=== PATIENT | female | born 1985 | race Caucasian/White ===

== ENCOUNTER → 2017-08-02 | Outpatient (CLI) | payer BC ==
[~2017-08-02] MED LIST: DOCO100C2 PO; PREN-127 PO
[2017-08-02 12:02] LABS: PLATELET COUNT, AUTOMATED 267 K/uL (150-450)
== END ==
LOC: LAB 11:34
PROVIDERS: ATTEND Obstetrics & Gynecology
DX: Z34.01 Encounter for supervision of normal first pregnancy, first trimester (principal); R82.79 Other abnormal findings on microbiological examination of urine
CPT/HCPCS: 36415; 85025; 86592; 86762; 86850; 86900; 86901; 87088; 87340

== ENCOUNTER → 2017-08-12 | Outpatient (CLI) | payer BC | LOC: LAB 13:40 | PROVIDERS: ATTEND Obstetrics & Gynecology | DX: Z34.01 Encounter for supervision of normal first pregnancy, first trimester (principal) | CPT/HCPCS: 87491; 87591 ==

== ENCOUNTER → 2017-11-07 | Outpatient (CLI) | payer BC ==
[~2017-11-07] MED LIST changes: +DOXY25TA54 PO; +VITA1CAP46 PO
--- NOTE | 2017-11-07 17:14 | RADIOLOGY IMAGING REPORT ---
FACILITY: [facility] PATIENT NAME: Fabi Mohamud : 1985 MR: [id number] V: [id number] EXAM DATE: ORDERING PHYSICIAN: TOI AGOSTO TECHNOLOGIST: Location: [facility] Patient: Fabi Mohamud : 1985 Visit/Account:[id number] Date of Sevice: 11/07/2017 OB Ultrasound HISTORY: Size and dates COMPARISON STUDIES: None available FINDINGS: Intrauterine gestations: one presentation: Variable heart rate: 147 bpm Amniotic fluid index: 17.0 cm Largest amniotic fluid pocket 5.1 cm Placenta: Anterior without previa Uterus: gravid, otherwise normal Maternal adnexa: Unremarkable Cervix: long and closed Gestational Parameters: BPD: 4.8 cm 20 weeks 5 days HC: 17.4 cm 20 weeks 3 days AC: 15.2 cm 20 weeks 4 days FL: 3.8 cm 22 weeks 2 days Average ultrasound age (AUA): 21 weeks 0 days TESSIE: 03/20/2018 Estimated weight (EFW): 403 g EFW: 89th percentile Anatomic Survey: Intracranial structures, 4-chamber heart, stomach, kidneys, urinary bladder, spine, 3-vessel cord and cord insertion are unremarkable. Two upper and two lower extremities visualized. IMPRESSION: 1. Single live intrauterine gestation with dates and measurements as above. 2. Unremarkable anatomic survey Report Dictated By: Jaden Villeda at 11/07/2017 5:08 PM Report E-Signed By: Jaden Villeda at 11/07/2017 5:10 PM [id number]
== END ==
LOC: RAD 08:07
PROVIDERS: ATTEND Obstetrics & Gynecology
DX: Z02.9 Encounter for administrative examinations, unspecified (principal)
CPT/HCPCS: 76811

== ENCOUNTER → 2017-12-21 | Outpatient (CLI) | payer BC ==
[~2017-12-21] MED LIST changes: +BUTA1TAB14 PO; +DIPH0.5D12 IM
[2017-12-21 14:28] LABS: PLATELET COUNT, AUTOMATED 260 K/uL (150-450)
== END ==
LOC: LAB 08:03
PROVIDERS: ATTEND Obstetrics & Gynecology
DX: O09.90 Supervision of high risk pregnancy, unspecified, unspecified trimester (principal)
CPT/HCPCS: 36415; 82950; 85025

== ENCOUNTER → 2017-12-28 | Outpatient (CLI) | payer BC ==
[~2017-12-28] MED LIST changes: +ONDA4TAB97 PO
== END ==
LOC: LAB 07:53
PROVIDERS: ATTEND Obstetrics & Gynecology
DX: O99.810 Abnormal glucose complicating pregnancy (principal)

== ENCOUNTER → 2018-02-23 | Outpatient (CLI) | payer BC | LOC: LAB 11:55 | PROVIDERS: ATTEND Student in an Organized Health Care Education/Training Program | DX: Z34.93 Encounter for supervision of normal pregnancy, unspecified, third trimester (principal) | CPT/HCPCS: 87077; 87081 ==

== ENCOUNTER 2018-03-15 15:12 | Inpatient (IN) | payer BC ==
[~2018-03-15] VITALS: Ht 171.4 cm; Wt 107.5 kg
[~2018-03-15 15:12] MED LIST changes: +FLU60SYR36 IM
[2018-03-15] MEDS ORDERED: OXYTOCIN 30 UNIT/D5LR 500 ML 500 ML IV PRN (16:09)
[2018-03-15] MEDS ORDERED: FAMOTIDINE(*) 20MG/50ML PREMIX 50 ML IVPB PRN (16:09)
[2018-03-15] MEDS ORDERED: FLUSH 10 ML SYR IVP PRN (16:10)
[2018-03-15] MEDS ORDERED: LIDOCAINE/SOD BICARB 8.4% SYR SC PRN (16:10)
[2018-03-15] MEDS ORDERED: METOCLOPRAMIDE 10 MG/2 ML SDV IVP PRN (16:10)
[2018-03-15] MEDS ORDERED: LIDOCAINE 1% LOCAL 300 MG/30ML INJ PRN (16:10)
[2018-03-15 16:18] VITALS: BP 136/87
[2018-03-15] MEDS: LR(*) 1000 ML BAG 1,000 ML IV SCH ×2 (16:27→18:37)
[2018-03-15 16:53] LABS: PLATELET COUNT, AUTOMATED 282 K/uL (150-450)
[2018-03-15] MEDS: fentaNYL CITR 100 MCG/2 ML AMP IVP PRN ×2 (17:45→17:54)
--- NOTE | 2018-03-15 18:14 | History & Physical ---
History of Present Illness Age of Patient: 32 : 1 Para or TPAL: 0 EDC per LMP: Mar 25, 2018 Estimated Gestational Age: 38.4 Chief Complaint Loss of fluid, my water broke. History of Present Illness Pt is a 32 y/o @ 38-4/7 wga who presents to L&D with a chief complaint of loss of amniotic fluid. Pt reports loss of fluid right after 3pm today. Clear amniotic fluid. Contractions starting there after. Pt denies any vaginal bleeding. Good movement. No fevers or chills. History Patient's Blood Type: O Positive Rubella Status: Immune Group B Strep Screen: Negative Obstetrical History: Past Medical History: Non contributory Allergies: Coded Allergies: No Known Drug Allergies (Unverified , 07/27/17) Social History: Denies X 3 Family History: FH: hypertension FATHER FH: skin cancer MOTHER FH: stroke Paternal Grandfather Med Rec Home Meds Active Scripts Ondansetron Hcl (ZOFRAN) 4 Mg Tablet, 4 MG PO DIRECTED, #1 TAB 0 Refills 1 tab PO 30 minutes prior to test Prov:TOI AGOSTO MD 12/28/17 Butalb/Acetaminophen/Caff 50-325-40 Mg (FIORICET 50-325-40) 1 Each Tablet, 1-2 TAB PO Q4H PRN for pain, #30 TAB 1 Refill Prov:TOI AGOSTO MD 11/23/17 Reported Medications Vitamin B Complex (VITAMIN B COMPLEX) 1 Each Capsule, 1 EACH PO, CAPSULE 09/28/17 Doxylamine Succinate (UNISOM SLEEP AID) 25 Mg Tablet, 25 MG PO 09/28/17 Docosahexanoic Acid (DHA) 100 Mg Capsule, 100 MG PO QDAY, CAPSULE 07/27/17 Vits W-Ca,Fe,Fa(<1MG) ( VITAMINS) 1 Each Tablet, 1 EACH PO DAILY, TAB 07/27/17 Review of Systems All Systems Reviewed/Normal: Yes, Except as Noted Constitutional: No Fever, No Weight Loss, No Weight Gain, No Chills, No Night Sweats, No Other Neurological: No Syncope, No Confusion, No Weakness, No Dizziness, No Slurred Speech, No Other Eyes: No Vision Change, No Loss of Vision, No Photophobia, No Other ENT: No Hearing Loss, No Sinus Congestion, No Sore Throat, No Ear Ache, No Tinnitus, No Other Cardiovascular: No Chest Pain, No Palpitations, No Orthostatic Hypotension, No Other Respiratory: No Shortness of Breath, No Cough, No Wheezing, No Other Gastrointestinal: No Nausea, No Vomiting, No Diarrhea, No Dysphagia, No Constipation, No Early Satiety, No Hematemesis, No Hematochezia, No Melena, No Abdominal Pain, No Other Genitourinary: No Dysuria, No Hematuria, No Urinary Incontinence, No Other Musculoskeletal: No Pain, No Sprain, No Strain, No Impaired Mobility, No Other Psychiatric: No Depression, No Anxiety, No Other Exam General Exam Vital Signs Vital Signs Date Time Temp Pulse Resp B/P (MAP) Pulse Ox O2 Delivery O2 Flow Rate FiO2 03/15/18 16:18 98.4 85 24 136/87 (103) Room Air General Apperance: Alert/Awake/No Acute Distress Neuro: No Gross deficits Eyes: Normal Extraocular Movement & Vison, PERRLA ENT: Normal Cardiovascular: Regular Rate and Rhythm Respiratory: No Respiratory Distress, Clear to Auscultation Abdomen: Soft, Non-Tender, Non-Distended, Gravid - Non-Tender : Normal Musculoskeletal: No Weakness/Pain Extremities: No Cyanosis,Clubbing or Edema Integumentary: Skin Intact without Lesions or Rash Psychological: Alert & Oriented X3, Appropriate Mood & Affect Vaginal Discharge/Fluid?: Clear Fluid (Grossly ruptured.) Cervical Dialation: 1 Cervical Effacement (%): 100 Cervical Consistency: Soft Cervical Position: Anterior Station: -1 Presentation: Vertex (confirmed by bedside U/s. 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 Will expect . Pt desires "Natural (w/o epidural) delivery. Pt progressing slowly with Fentanyl. (3) Primigravida in third trimester MABLE ARRIAGA DO Mar 15, 2018 18:14
[2018-03-15] MEDS ORDERED: fentaNYL CITR 100 MCG/2 ML AMP IT PRN (18:20)
[2018-03-15] MEDS ORDERED: BUPIVACAINE 0.25% MPF INJ EPI PRN (18:20)
[2018-03-15] MEDS ORDERED: LIDO/EPI 2% MPF 1:200,000 20ML EPI PRN (18:20)
[2018-03-15] MEDS ORDERED: EPIDURAL KEYS XX PRN (18:20)
[2018-03-15] MEDS ORDERED: BUPIVACAINE 0.5% INJ 30ML VIAL EPI PRN (18:20)
[2018-03-15] MEDS ORDERED: LIDOCAINE/PF 2% 200MG/10ML AMP 200 MG/10 ML AMPUL EPI PRN (18:20)
[2018-03-15] MEDS ORDERED: FENTANYL/ROPIVACAINE 100 ML BAG EPI PRN (18:20)
[2018-03-15] MEDS: ONDANSETRON 4 MG/2 ML VIAL IVP PRN (18:31)
[2018-03-15] MEDS ORDERED: LR(*) 1000 ML BAG 1,000 ML IV PRN (18:40)
--- NOTE | 2018-03-15 20:05 | Anesthesia OB Pre-Anes Eval ---
History of Present Illness Anesthesia Start Date: Mar 15, 2018 Anesthesia Start Time: 18:50 OB Anesthesia Diagnosis: spontaneous ROM Complications: None known EDC: Mar 25, 2018 : 1 Para: 0 Vital Signs: Vital Signs Date Time Temp Pulse Resp B/P (MAP) Pulse Ox O2 Delivery O2 Flow Rate FiO2 03/15/18 16:18 98.4 85 24 136/87 (103) Room Air Pain Ratin Heart Tones: WNL Result Diagram: 03/15/18 1630 Height (Inches): 67.50 Weight (Pounds): 237 Past Medical History Medical History: no pertinent history Surgical History: other (knee) Previous Anesthesia: general Attended Childbirth Classes?: Yes, Attended SUPERVISOR OF WAY Lecture, Other (but no anesthesia lecture) Hx Anesthesia Reactions: No Hx Family Anesthesia Reaction: No Current Medications: pain medication (Fentenyl) Home Meds Active Scripts Ondansetron Hcl (ZOFRAN) 4 Mg Tablet, 4 MG PO DIRECTED, #1 TAB 0 Refills 1 tab PO 30 minutes prior to test Prov:TOI AGOSTO MD 12/28/17 Butalb/Acetaminophen/Caff 50-325-40 Mg (FIORICET 50-325-40) 1 Each Tablet, 1-2 TAB PO Q4H PRN for pain, #30 TAB 1 Refill Prov:TOI AGOSTO MD 11/23/17 Reported Medications Vitamin B Complex (VITAMIN B COMPLEX) 1 Each Capsule, 1 EACH PO, CAPSULE 09/28/17 Doxylamine Succinate (UNISOM SLEEP AID) 25 Mg Tablet, 25 MG PO 09/28/17 Docosahexanoic Acid (DHA) 100 Mg Capsule, 100 MG PO QDAY, CAPSULE 07/27/17 Vits W-Ca,Fe,Fa(<1MG) ( VITAMINS) 1 Each Tablet, 1 EACH PO DAILY, TAB 07/27/17 Allergies: Coded Allergies: No Known Drug Allergies (Unverified , 07/27/17) Anesthesia OB ROS Neurological: migraines/headaches (history) ENT: Denies Tooth caps, Denies Loose teeth, Denies Chipped teeth, Denies Dentures, Denies Bridges, Denies Retainers, Denies Veneers, Denies Implants, Denies Tongue ring Pulmonary: No asthma, No smoker (pks/day/yrs) Airway Class: ll Cardiovascular ROS: No edema, No arrhythmia GI ROS: clear liquids, nausea, vomiting Last Solids Date: Mar 15, 2018 Last Solids Time: 14:30 ROS: No Herpes, No STD(s), No Liver Disease, No Renal Disease Endocrine ROS: No diabetes, No gestational diabetes, No thyroid disorder Musculoskeletal ROS: No low back pain, No low back injury, No scoliosis ASA Classification: 2 Assessment and Plan Anesthesia Plan: CSE Assessment Past Medical, Surgical, Family and Obstetric Histories reviewed. Please see ACOG chart. Epidural anesthesia risks, complications and benefits explained to patient's satisfaction for labor and vaginal delivery and/or section. General anesthesia risks and benefits explained to patient's satisfaction. Questions invited, none asked. MARITZA CHANG CRNA Mar 15, 2018 20:04
--- NOTE | 2018-03-15 20:12 | Procedure Note ---
Anesthetic Placement Note Anesthesia Plan: CSE Permit for Anesthesia Signed: Yes Anesthesia Technique: Patient Sitting Anesthesia Prep: Chlorhexidine Interspace: L 3-4 Local Anesthetic: 1% Lidocaine, 25 Gauge Needle Amount Local - cc's: 2 Anesthesia Needle: 17g Touhy/Schliff Anesthesia Attempts: 1 Loss of Resistance: Air Depth of SULEMAN (cm): 6 Epidural Needle Placement: No CSF, No Blood, No Parasthesia Intrathecal Needle: 27 Gauge Pencan Cerebral Spinal Fluid: Yes, Clear Catheter Insertion (cm): 8 Catheter Type: Kapadia - Spring Wound Epidural Dressing: Tegaderm, Tape, Adhesive [place] Anesthesia Tray: Lot Number ([id number]), Expiration Date (2019-01-22), Reference Number ([id number]) Anesthesia Medications: Intrathecal Dose: mcg Fentanyl (15), mg Marcaine MPF (1.75), Time (1906) Epidural Test Dose: 1.5 Lido/Epi (1:200,000), Dose - mL (2), Time (1937), Negative Epidural Loading Dose: 0.2% Ropivicaine, With Fentanyl 2mcg/ml, Dose - ml (5) Epidural Infusion: 0.2% Ropivicaine, With Fentanyl 2mcg/ml, Start Time: (1937) Epidural Pump Setting: Bolus Dose - mL (5), Lockout - Minutes (0), Maintenance Rate - mL/hr (6), Maximum per Hour - mL (21) Complications: None Comment: Pt. tolerated procedure very well, able to maintain position. Very vocal with contractions. Pt. became comfortable within 5-7 minutes after intrathecal. Mild itching noted. MARITZA CHANG CRNA Mar 15, 2018 20:12
--- NOTE | 2018-03-15 20:14 | Anesthesia Progress Note ---
Progress/Maintenance Anesthesia Note Date: Mar 15, 2018 Anesthesia Note Time: 20:10 Pain Intensity: 0 Pump: On Pump Rate (ML/HR): 6 Sensory Level: T-12 Motor Level: Bending Knees-Bilateral Dilatation: 4 Position: Right Assessment and Plan Assessment Assisted to change sides, now on left. Pt. was able to move herself. Legs feeling equal. States she does not feel contractions. Encouraged to rest. Protein drink given. MARITZA CHANG CRNA Mar 15, 2018 20:14
[2018-03-15] MEDS ORDERED: FAMOTIDINE(*) 20MG/50ML PREMIX 50 ML IVPB ONE (22:00)
--- NOTE | 2018-03-15 23:26 | Anesthesia Progress Note ---
Progress/Maintenance Anesthesia Note Date: Mar 15, 2018 Anesthesia Note Time: 23:25 Pain Intensity: 1 Pump: On Pump Rate (ML/HR): 6 Sensory Level: T-12 Motor Level: Bending Knees-Bilateral Dilatation: 8 Position: Right, Tilt Assessment and Plan Assessment Pt. states she feels more on her rt side, assisted to turn onto her rt. Pt. does very well in moving her legs and lifting. MARITZA CHANG CRNA Mar 15, 2018 23:26
[2018-03-16] MEDS: ONDANSETRON 4 MG/2 ML VIAL IVP PRN (02:40)
--- NOTE | 2018-03-16 04:51 | Anesthesia Progress Note ---
Progress/Maintenance Anesthesia Note Date: Mar 16, 2018 Anesthesia Note Time: 04:45 Pain Intensity: 5 Pump: On Pump Rate (ML/HR): 6 Sensory Level: T-12 Motor Level: Bending Knees-Bilateral, Other (Able to move both legs and lift to change pads) Dilatation: 9 Position: Right, Tilt Drug Bolus: 0.5% Marcaine (5 ml), Other (85 mcgs) Assessment and Plan Assessment Pt. with anterior lip. Bolus per epidural pump with no improvement in comfort for rt sided pain with contractions. Turned onto rt side and manual bolus given. Will observe for improvement. MARITZA CHANG CRNA Mar 16, 2018 04:51
--- NOTE | 2018-03-16 07:29 | Labor Progress Note ---
Labor Subjective Progress Notes Subjective Doing good s/p epidural. Feeling increased pressure. Desires to push. Feeling Movement?: Yes Vaginal Discharge/Fluid: No Bloody Show, No Clear Fluid, No Bloody Fluid, No Green Tinged Fluid, No Dark Green Fluid, No Mucous, No Small Amount, No Moderate Amount, No Large Amount, No Other Labor Pain: Mild Neurological: No Headache, No Other Eyes: No Visual Disturbances Labor Objective Vital Signs Vital Signs Date Time Temp Pulse Resp B/P (MAP) Pulse Ox O2 Delivery O2 Flow Rate FiO2 03/15/18 16:18 98.4 85 24 136/87 (103) Room Air Vaginal Discharge/Fluid?: Bloody Show Cervical Dialation: 10 Cervical Effacement (%): 100 Cervical Consistency: Soft Cervical Position: Anterior Station: +2 Presentation: Vertex Uterine Contractions(Q min): 1.5 Uterine Contraction Strength: Moderate UC Resting Tone: Soft Fetus Heart Tones: 130 Heart Tone Variabilty: Moderate FHT Accelerations: 15X15 FHT Decelerations: None FHT Category: I Other Result Diagram: 03/15/18 1630 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 Expect . (3) Primigravida in third trimester BARTMABLE MILLER Mar 16, 2018 07:29
--- NOTE | 2018-03-16 09:16 | Anesthesia Progress Note ---
Progress/Maintenance Anesthesia Note Date: Mar 16, 2018 Anesthesia Note Time: 09:10 Pain Intensity: 0 Pump: Off Sensory Level: T-12 Motor Level: Bending Knees-Bilateral Dilatation: 10 Position: Semi-Fowlers Drug Bolus: 0.5% Marcaine (5 ml) Assessment and Plan Assessment Bolus of 0.5% Marcaine 5 ml given 2 contractions before delivery. Excellent tolerance of delivery and repair work. Empty syringe attached to epidural catheter and RN agrees to remove with ambulation. Patient instructed the first ambulation is to be with help of nursing staff. Instructed to preform deep knee bends at bedside before walking. Anesthesia Stop Day: Mar 16, 2018 Anesthesia Stop Time: 09:15 MARITZA CHANG CRNA Mar 16, 2018 09:16
[2018-03-16] MEDS ORDERED: GLYCERIN/WITCH HAZEL LEAF 1 PK TP PRN (11:10)
[2018-03-16] MEDS ORDERED: ACETAMINOPHEN 325 MG TAB PO PRN (11:10)
[2018-03-16] MEDS ORDERED: LANOLIN OINT 7 GM TUBE TP PRN (11:10)
[2018-03-16] MEDS ORDERED: APAP/HYDROCODONE 325/5 TAB PO PRN (11:10)
[2018-03-16] MEDS ORDERED: HYDROCORTISONE 2.5% CR 30GM TB PR PRN (11:10)
[2018-03-16] MEDS ORDERED: BENZOCAINE 20% 60 ML BTL TP PRN (11:10)
[2018-03-16] MEDS ORDERED: MAGNESIUM HYDROXIDE* 30ML UDCP PO PRN (11:10)
--- NOTE | 2018-03-16 11:15 | OB Delivery Note ---
Delivery Note Vaginal Delivery Type: Spont. Vaginal Delivery Delivery Date: Mar 16, 2018 Delivery Time: 08:56 Estimated Gestational Age(wks): 38.5 Length of Labor Stage I (hrs): 12 Length of Labor Stage II (hrs): 3.5 Labor Stage III (minutes): 18 Delivery Anesthesia: Epidural Sex: Male (6#12) Infant Weight (gms): 3064 Apgars: 1 Minute (8), 5 Minute (9) Repair Needed: 2nd Degree Delivery Complications: Nuchal Cord, Other (Compound left arm) Public Policy Manager in Attendence: MABLE Esqueda DO Mar 16, 2018 11:15
--- NOTE | 2018-03-16 12:22 | DELIVERY NOTE ---
DELIVERY DATE: March 16, 2018 SURGEON: Santosh Pollack DO ANESTHESIA: Epidural. PREOPERATIVE DIAGNOSIS 1. 32-year-old 1, para 0 at 38 5/7 weeks gestation. 2. Spontaneous rupture of membranes. POSTOPERATIVE DIAGNOSIS 1. 32-year-old 1, para 0 at 38 5/7 weeks gestation. 2. Spontaneous rupture of membranes. 3. Delivery PROCEDURE Spontaneous vaginal delivery with repair of second degree midline laceration and a left labial laceration. FINDINGS Live born male at 08:56 on 03/16/18 with Apgars of 8 and 9, weighing 3,064 grams, 6 lbs. 12 oz, 3 vessel cord, intact placenta over second degree midline laceration. ESTIMATED BLOOD LOSS PATHOLOGY None. COMPLICATIONS None known. CONDITION Stable times 2, mother and to remain in LDRP. Counts correct times 2 for all needles, laps, sponge and instruments. LABOR SUMMARY The patient is a 32-year-old 1, para 0 at 38 5/7 weeks gestation, presented with a chief complaint of loss of amniotic fluid. She was noted to be grossly ruptured. The patient was only 1 cm. She began to progress spontaneously, eventually made it to 8 cm. She did request an epidural for pain medicine with the epidural. A few hours after epidural, the contractions were hypotonic and patient did require some Oxytocin to further dilate the cervix. With contractions adequate, the patient was noted to be complete. Once the patient had the urge to push, she was prepped by the nursing staff and coached accordingly. After approximately 2 hours of pushing, the patient was ready for delivery and the delivery team was called and assembled. DELIVERY SUMMARY The patient was placed in the dorsal lithotomy position. She was prepped and draped in the usual sterile manner. Upon maternal pushing, the infant's head delivered in a controlled manner, followed by the anterior shoulder with gentle downward motion, posterior shoulder with gentle upward motion. The remainder of the 's body delivered spontaneously. The mouth and nose were bulb suctioned. The cord was clamped x 2 and cut by the 's father at which time the infant was allowed to remain on maternal abdomen. At this point cord blood gases were obtained and the placenta delivered spontaneously with gentle cord traction. Oxytocin was infused to help with uterine tone. The uterus was massaged and deemed firm. Upon inspection of the perineum, vagina, cervix, and labia it was noted that there was a second degree midline laceration and this was repaired in the usual manner with 3-0 Vicryl. With laceration repaired, the patient was cleaned. The labor bed was reassembled and the mother and infant were allowed to continue to davalos. RONNIE
[2018-03-16] MEDS: IBUPROFEN 800 MG TAB PO SCH ×2 (13:52→21:19)
[2018-03-16 16:40] VITALS: BP 120/76
[2018-03-16 19:10] VITALS: BP 128/76
[2018-03-16] MEDS: DOCUSATE CALCIUM 240 MG CAP PO SCH (21:04)
[2018-03-16 23:45] VITALS: BP 125/73
[2018-03-17 03:30] VITALS: BP 125/79
[2018-03-17] MEDS ORDERED: FAMOTIDINE 20 MG TAB PO ONE (04:00)
[2018-03-17] MEDS: IBUPROFEN 800 MG TAB PO SCH ×2 (04:36→12:57)
[2018-03-17 08:15] VITALS: BP 121/75
[2018-03-17] MEDS: DOCUSATE CALCIUM 240 MG CAP PO SCH (09:53)
[2018-03-17] MEDS ORDERED: INFLUENZA VIRUS VAC 0.5ML SYR IM ONLY ONE (11:10)
[2018-03-17] MEDS ORDERED: DIPHTH/TETANUS/ACEL. PERTUSSIS IM ONLY ONE (11:10)
[2018-03-17] MEDS ORDERED: MEASLES,MUMP,RUBELLA VAC 0.5ML SUBQ ONE (11:10)
--- NOTE | 2018-03-17 12:21 | OB/GYN Progress Note ---
OB Subjective Progress Notes Subjective Doing good. Reports pain minimal. Tolerating po intake. Voiding with out any difficulty. . Ambulatory. Lochia appropriate GI: NEG Nausea, NEG Vomiting, NEG Flatus, NEG Bowel Movement : Voiding Well Pain: Mild, Tolerating PO Pain Meds Neurological: No Headache, No Other OB Objective Physical Exam Vital Signs Date Time Temp Pulse Resp B/P (MAP) Pulse Ox O2 Delivery O2 Flow Rate FiO2 03/17/18 08:15 97.2 83 16 121/75 (90) 03/17/18 03:30 94 03/15/18 16:18 Room Air Intake and Output 03/17/18 06:59 Intake Total 1500 ml Output Total 100 ml Balance 1400 ml IV Total 1500 ml Output Urine Total 100 ml # Voids 1 General Appearance: Alert/Awake/No Acute Distress Neurological: No Gross deficits Eyes: Normal Extraocular Movement & Vison, PERRLA Respiratory: No Respiratory Distress, Clear to Auscultation Abdomen: Soft, Non-Tender, Non-Distended, Fundus Firm Extremities: No Cyanosis,Clubbing or Edema Integumentary: Skin Intact without Lesions or Rash Psychological: Alert & Oriented X3, Appropriate Mood & Affect Result Diagram: 03/17/18 0544 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 Follow up in 2 weeks. (2) Spontaneous rupture of amniotic membranes Status: Resolved (3) Primigravida in third trimester Status: Resolved MABLE ARRIAGA DO Mar 17, 2018 12:21
[2018-03-17] MEDS ORDERED: LOR5/325 PO (12:23)
[2018-03-17] MEDS ORDERED: IBUP800T37 PO (12:23)
--- NOTE | 2018-03-17 12:30 | OB/GYN Discharge Summary ---
Discharge Summary Reason for Hosp/Final Diag: (1) 38 weeks gestation of Status: Resolved (2) Spontaneous rupture of amniotic membranes Status: Resolved Hospital Course & Plan: Presented to L&D with a complaint of LOF. Found to be grossly ruptured and in labor. Progressed to complete and plus three. Pushed for 2 hours. Delivered live born male infant. See delivery note for details of procedure. Pt remained in the hospital for 1 day post . Pt desired to be discharged home with instructions to follow up in 2 weeks. (3) Primigravida in third trimester Status: Resolved Lates Vital Signs Vital Signs Date Time Temp Pulse Resp B/P (MAP) Pulse Ox O2 Delivery O2 Flow Rate FiO2 03/17/18 08:15 97.2 83 16 121/75 (90) 03/17/18 03:30 94 03/15/18 16:18 Room Air Weight (Pounds): 237 Result Diagram: 03/17/18 0544 Condition: Improved Discharge: Home Home Meds Active Scripts Hydrocodone Bit/Acetaminophen (HYDROCODON-ACETAMINOPHEN 5-325) 1 Each Tablet, 1- 2 EACH PO Q4H PRN for PAIN, #8 TAB 0 Refills Prov:MABLE ARRIAGA DO 03/17/18 Ondansetron Hcl (ZOFRAN) 4 Mg Tablet, 4 MG PO DIRECTED, #1 TAB 0 Refills 1 tab PO 30 minutes prior to test Prov:TOI AGOSTO MD 12/28/17 Butalb/Acetaminophen/Caff 50-325-40 Mg (FIORICET 50-325-40) 1 Each Tablet, 1-2 TAB PO Q4H PRN for pain, #30 TAB 1 Refill Prov:TOI AGOSTO MD 11/23/17 Reported Medications Vitamin B Complex (VITAMIN B COMPLEX) 1 Each Capsule, 1 EACH PO, CAPSULE 09/28/17 Doxylamine Succinate (UNISOM SLEEP AID) 25 Mg Tablet, 25 MG PO 09/28/17 Docosahexanoic Acid (DHA) 100 Mg Capsule, 100 MG PO QDAY, CAPSULE 07/27/17 Vits W-Ca,Fe,Fa(<1MG) ( VITAMINS) 1 Each Tablet, 1 EACH PO DAILY, TAB 07/27/17 Follow up with: [facility] [phone], Dr. Arriaga [phone] Follow up in: 6 wks PP or PO, 2 wks PO Discharge Diet: As Tolerates, Resume Prior Admit Diet Discharge Activity: As Tolerates, Pelvic Rest MABLE ARRIAGA DO Mar 17, 2018 12:30
[2018-03-17 13:19] VITALS: BP 119/63
--- NOTE | 2018-03-17 14:42 | Anesthesia Post Eval Note ---
Anesthesia Post Eval Note Vital Signs Date Time Temp Pulse Resp B/P (MAP) Pulse Ox O2 Delivery O2 Flow Rate FiO2 03/17/18 13:19 97.9 80 18 119/63 (81) 03/17/18 03:30 94 03/15/18 16:18 Room Air Pt able to participate in Eval: Yes Cardiovascular Status: Satisfactory Respiratory Status: Satisfactory Pain Managment: Satisfactory PO Nausea/Vomiting: Satisfactory Temperature Management: Satisfactory Mental Status: Satisfactory, Alert, Oriented X3 Post-Op Hydration Status: Satisfactory, Tolerating PO Well, Voiding w/o Difficulty Anesthesia Type: CSE Anesthesia Tolerance: Tolerated procedure well without apparent anesthetic complications. LP site clear, no redness or edema. Denies headache or any residual paresthesia. Vital Signs Stable, Patient comfortable and condition stable. MARITZA CHANG CRNA Mar 17, 2018 14:42
== END 2018-03-17 16:00 | disposition home or self-care (01) | DRG 807 ==
LOC: OB 15:12
PROVIDERS: ADMIT Student in an Organized Health Care Education/Training Program; ATTEND Student in an Organized Health Care Education/Training Program
PROC: 10E0XZZ Delivery of Products of Conception, External Approach (ICD-10-PCS; principal; 2018-03-15)
PROC: 0KQM0ZZ Repair Perineum Muscle, Open Approach (ICD-10-PCS; 2018-03-15)
DX: O42.02 Full-term premature rupture of membranes, onset of labor within 24 hours of rupture (principal); Z37.0 Single live birth; Z3A.38 38 weeks gestation of pregnancy; O69.81X0 Labor and delivery complicated by cord around neck, without compression, not applicable or unspecified; O32.6XX0 Maternal care for compound presentation, not applicable or unspecified; O70.1 Second degree perineal laceration during delivery
CPT/HCPCS: 36415; 85025; 85027; 86703; 86850; 86900; 86901; J2405; J2590; J3010; J3490; J7120

== ENCOUNTER → 2018-11-22 | Outpatient (CLI) | payer BC ==
[~2018-11-22] MED LIST changes: +CEPH500T7 PO; -DIPH0.5D12 IM; +DIPH0.5S2 IM; +FLUC150T40 PO; +IBUP800T37 PO; +LOR5/325 PO; +NITR-105 PO
== END ==
LOC: LAB 14:32
PROVIDERS: ATTEND Advanced Practice Midwife
DX: O72.1 Other immediate postpartum hemorrhage (principal); O99.345 Other mental disorders complicating the puerperium
CPT/HCPCS: 36415; 81025; 84443